=== PATIENT | male | born 1960 | race Caucasian/White ===

== ENCOUNTER → 2025-03-18 10:13 | Outpatient (REF) | payer MEDICARE, SELFPAY | LOC: HWRAD 10:13 | PROVIDERS: ATTENDING PHYSICIAN Internal Medicine | DX: R61 Generalized hyperhidrosis (principal); M54.2 Cervicalgia; M25.561 Pain in right knee | CPT/HCPCS: 71046; 72050; 73564 ==

== ENCOUNTER → 2025-06-26 14:51 | Outpatient (REF) | payer MEDICARE, SELFPAY | LOC: HWRAD 14:51 | PROVIDERS: ATTENDING PHYSICIAN Physician Assistant; FAMILY PHYSICIAN Internal Medicine | DX: M12.30 Palindromic rheumatism, unspecified site (principal); M79.641 Pain in right hand | CPT/HCPCS: 73120 ==

== ENCOUNTER 2025-06-29 13:16 | Emergency (ER) | payer MEDICARE, SELFPAY ==
[2025-06-29 13:25] VITALS: BP 131/59
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
[2025-06-29] MEDS: MOTRIN 600 MG PO (14:35)
[2025-06-29] MEDS: KEFLEX 500 MG PO (14:35)
[2025-06-29 14:36] VITALS: BMI 21.8
== END 2025-06-29 15:13 | disposition home or self-care (01) ==
LOC: EMR 13:16
PROVIDERS: EMERGENCY PHYSICIAN Emergency Medicine; FAMILY PHYSICIAN Internal Medicine
DX: S71.132A Puncture wound without foreign body, left thigh, initial encounter (principal); S80.812A Abrasion, left lower leg, initial encounter; S80.811A Abrasion, right lower leg, initial encounter; E10.41 Type 1 diabetes mellitus with diabetic mononeuropathy; G57.32 Lesion of lateral popliteal nerve, left lower limb; E78.00 Pure hypercholesterolemia, unspecified; M12.30 Palindromic rheumatism, unspecified site; Z79.4 Long term (current) use of insulin; W20.8XXA Other cause of strike by thrown, projected or falling object, initial encounter; W17.81XA Fall down embankment (hill), initial encounter; Y93.55 Activity, bike riding
CPT/HCPCS: 99283; 12001; 73552